=== PATIENT | male | born 2000 | race Caucasian/White ===

== ENCOUNTER 2021-07-01 12:19 | Observation (INO) ==
--- NOTE | 2021-07-01 12:59 | Emergency Department Note ---
Impression & Plan Pneumothorax, traumatic, Multiple fractures of ribs ED Provider Note NAME: RUIZ CHEW AGE: 21 SEX: M : 2000 ARRIVES VIA: Walk-In INFORMANT: Patient, ED PROVIDER(S): Alber Swartz DO CHIEF COMPLAINT: Chest pain HPI: The patient is a 21-year-old male who presented to emergency department for an evaluation of chest pain. The patient has left-sided chest pain over his anterior left chest. He states he fell yesterday while skateboarding he thinks he landed on his arm. He has some abrasions on his left upper extremity but otherwise has no other complaints. He denies having any nausea or vomiting. He denies having any abdominal pain or rectal bleeding. He denies having any back pain. He was seen at an urgent care center and had x-rays which revealed a pneumothorax as well as rib fractures. He was sent to the emergency department for further evaluation. He states he has pain that worsens with deep inspiration as well as palpation over the anterior chest wall. He denies having any leg pain or leg swelling. ROS: See above HPI for pertinent positives & negatives. A total of 10 systems reviewed and were otherwise negative. PAST MEDICAL HISTORY: See Below PAST SURGICAL HISTORY: See Below FAMILY HISTORY: See Below SOCIAL HISTORY: See Below HOME MEDICATIONS: See Below ALLERGIES: See Below VITALS: See Below PHYSICAL EXAMINATION: GENERAL: Patient is awake alert in no acute distress patient is resting comfortably and showing no signs of anxiety EYES: The conjunctivae are clear. The pupils are round and reactive. EARS, NOSE, MOUTH AND THROAT: The nose is without any evidence of any deformity. Mucous membranes are moist. Tongue is midline. NECK: The neck is nontender and supple. RESPIRATORY: Splinting respirations were noted. Diminished breath sounds are noted in the left lung field. CARDIOVASCULAR: Regular rate and rhythm noted there no murmurs rubs or gallops normal S1 normal S2. GASTROINTESTINAL: The abdomen is soft. Abdomen is nontender. BACK: No midline tenderness or or step-off noted range of motion in flexion extension as well as rotation no signs of muscle spasm noted MUSCULOSKELETAL/EXTREMITIES: There is no evidence of gross deformity full range of motion is noted in the hips and shoulders. There is tenderness to palpation over the left anterior chest wall. No crepitus was appreciated. SKIN: There is no obvious evidence of any rash. There are no petechiae, pallor or cyanosis noted. Abrasions were noted on the left palm. There was no active bleeding. NEUROLOGIC: Patient is awake alert and oriented x3. Gait was steady. MEDICAL DECISION MAKING: The patient is a 21-year-old male who presented to the emergency department for evaluation of chest pain. The patient was seen at [facility] and had a chest x-ray. He was felt to have rib fractures and pneumothorax. He was sent to the emergency department for further evaluation. The patient was not hypoxic. He did not appear to have any signs of abdominal tenderness. The trauma occurred yesterday. I discussed patient's laboratory and radiographic studies with him. I discussed his condition with the on-call general surgeon. They reviewed to evaluate the patient in the emergency department for further management and disposition. Triage Nursing notes reviewed. Prior medical records reviewed Vital Signs: reviewed and remarkable for no significant abnormalities Differential diagnosis: Fracture, dislocation, contusion, intra-abdominal, pneumothorax, intrathoracic, intracranial, neurologic, compartment syndrome, rhabdomyolysis, as well as other pathologies. ER treatment provided: See below Diagnostics interpreted by me: ECG: none Cardiac Monitoring: An order was placed for continuous cardiac monitoring. The monitor shows a rate of 51 bpm with sinus rhythm. Laboratory studies: As stated above and show below. Imaging studies: See below Consultation(s): I discussed this case with Dr. Huber who is on-call for general surgery Past Med/Surg History Social History Smoking Status: Never smoker Feels Safe at Home: Yes Allergies Allergies Allergy/AdvReac Type Severity Reaction Status Date / Time No Known Allergies Allergy Unverified 07/01/21 14:45 Home Meds Home Medications Medication Instructions Recorded Confirmed No Known Home Medications 07/01/21 07/01/21 Results & Data (ED) Vital Signs Vital Signs - 24 hr 07/01/21 12:23 07/01/21 14:03 Temperature 37.0 C Temperature Source Oral Pulse Rate 68 51 L Pulse Rate [Apical] 51 L Respiratory Rate 20 18 Respiratory Effort / Characteristics Non-Labored Spontaneous Respiratory Depth Normal Respiratory Pattern Regular Blood Pressure 137/78 Blood Pressure [Right Arm] 130/69 Blood Pressure Mean 97 Blood Pressure Mean [Right Arm] 89 Blood Pressure Position [Right Arm] Sitting Pulse Oximetry 99 100 Oxygen Delivery Method Room Air Room Air Sepsis Recent Fever Within 48 Hours No Sepsis New/Unexplained Change in Mental Status N/A Sepsis Action Taken by Nursing No Action Required Home Medications Current Medication List: was personally reviewed by me Laboratory Data Attestation: I reviewed the patient's lab results. Result diagrams: 07/01/21 14:03 07/01/21 14:03 Lab Results 07/01/21 07/01/21 07/01/21 Range/Units 14:03 14:03 14:03 WBC 6.75 (4.8-10.8) K/uL RBC 4.79 (4.7-6.1) M/uL Hgb 14.2 (14.0-18.0) g/dL Hct 41.5 L (42-52) % MCV 86.6 (80-100) fL MCH 29.6 (25-34) pg MCHC 34.2 (32-36) g/dL RDW Std Deviation 42.4 (36.4-46.3) fL RDW Coeff of Sugar 13.3 (11.5-14.5) % Plt Count 232 (130-400) K/uL MPV 8.9 (7.4-10.4) fL Immature Gran % (Auto) 0.1 % Neut % (Auto) 63.3 % Lymph % (Auto) 26.7 % Brown % (Auto) 8.9 % Eos % (Auto) 0.9 % Baso % (Auto) 0.1 % Neut # (Auto) 4.27 (1.4-6.5) K/uL Lymph # (Auto) 1.80 (1.2-3.4) K/uL Brown # (Auto) 0.60 H (0.11-0.59) K/uL Eos # (Auto) 0.06 (0-0.5) K/uL Baso # (Auto) 0.01 (0-0.2) K/uL Immature Gran # (Auto) 0.01 (0.00-0.02) K/uL PT 11.4 (9.0-12.0) Seconds INR 1.1 (0.9-1.1) APTT 28.8 (21.0-31.0) Seconds PTT Ratio 1.0 Sodium 136 (136-145) mmol/L Potassium 3.8 (3.5-5.1) mmol/L Chloride 102 (98-107) mmol/L Carbon Dioxide 27 (21-32) mmol/L Anion Gap 7 (3-11) BUN 10 (6-23) mg/dl Creatinine 0.78 (0.6-1.4) mg/dl Est Cr Clr Drug Dosing 165.4 ml/min Est GFR ( Amer) 148.5 ml/min Est GFR (Non-Af Amer) 128.1 ml/min BUN/Creatinine Ratio 12.8 (10-20) Glucose 87 (70-99(Fasting)) mg/dl Calcium 9.2 (8.5-10.1) mg/dl Total Bilirubin 1.2 H (0.2-1.0) mg/dl AST 22 (13-39) U/L ALT 18 (7-52) U/L Alkaline Phosphatase 97 (34-104) U/L Total Protein 7.3 (6.0-8.3) gm/dl Albumin 4.3 (3.4-5.0) gm/dl Globulin 3.0 (2.5-4.0) gm/dl Albumin/Globulin Ratio 1.4 (0.9-2) Lipase 3 L (11-82) U/L SARS-CoV-2, RNA, NAAT (NEGATIVE) 07/01/21 Range/Units 14:06 WBC (4.8-10.8) K/uL RBC (4.7-6.1) M/uL Hgb (14.0-18.0) g/dL Hct (42-52) % MCV (80-100) fL MCH (25-34) pg MCHC (32-36) g/dL RDW Std Deviation (36.4-46.3) fL RDW Coeff of Sugar (11.5-14.5) % Plt Count (130-400) K/uL MPV (7.4-10.4) fL Immature Gran % (Auto) % Neut % (Auto) % Lymph % (Auto) % Brown % (Auto) % Eos % (Auto) % Baso % (Auto) % Neut # (Auto) (1.4-6.5) K/uL Lymph # (Auto) (1.2-3.4) K/uL Brown # (Auto) (0.11-0.59) K/uL Eos # (Auto) (0-0.5) K/uL Baso # (Auto) (0-0.2) K/uL Immature Gran # (Auto) (0.00-0.02) K/uL PT (9.0-12.0) Seconds INR (0.9-1.1) APTT (21.0-31.0) Seconds PTT Ratio Sodium (136-145) mmol/L Potassium (3.5-5.1) mmol/L Chloride (98-107) mmol/L Carbon Dioxide (21-32) mmol/L Anion Gap (3-11) BUN (6-23) mg/dl Creatinine (0.6-1.4) mg/dl Est Cr Clr Drug Dosing ml/min Est GFR ( Amer) ml/min Est GFR (Non-Af Amer) ml/min BUN/Creatinine Ratio (10-20) Glucose (70-99(Fasting)) mg/dl Calcium (8.5-10.1) mg/dl Total Bilirubin (0.2-1.0) mg/dl AST (13-39) U/L ALT (7-52) U/L Alkaline Phosphatase (34-104) U/L Total Protein (6.0-8.3) gm/dl Albumin (3.4-5.0) gm/dl Globulin (2.5-4.0) gm/dl Albumin/Globulin Ratio (0.9-2) Lipase (11-82) U/L SARS-CoV-2, RNA, NAAT NEGATIVE (NEGATIVE) Imaging Data Radiologist's Impression: Chest CT 07/01/21 12:51 CT OF THE CHEST WITHOUT IV CONTRAST CLINICAL HISTORY: Left-sided chest pain following trauma. COMPARISON STUDY: No previous studies for comparison. CT DOSE: 349.77 mGy.cm TECHNIQUE: Axial images of the chest were obtained without IV contrast. Images were reviewed in the axial, sagittal, and coronal planes. IV contrast was not administered for this examination. Automated exposure control was utilized for the study. A dose lowering technique was utilized adhering to the principles of ALARA. FINDINGS: A [id number] left pneumothorax occupies 30% of the left hemith orax. Subpleural left lower lobe opacity favors atelectasis. Subpleural ground glass opacity could reflect atelectasis or pulmonary contusion. There are acute nondisplaced fractures of the lateral left fifth and sixth ribs. No acute right- sided rib fractures are present. There is no right pneumothorax. Thoracic aorta is suboptimally assessed on this unenhanced exam but there is no mediastinal hematoma. Size of the heart is normal. There is no pericardial effusion. There is no thoracic lymphadenopathy. Note is made of slight loss of height of the superior endplate of T4. Visualized portions of the upper abdomen are unremarkable on this unenhanced exam. IMPRESSION: 1. Small to moderate left-sided pneumothorax which occupies 30% of the left hemithorax. 2. Acute nondisplaced fractures of the lateral left fifth and sixth ribs. 3. Subpleural left lower lobe opacity which could reflect atelectasis or pulmonary contusion. 4. Age indeterminate mild compression deformity of the superior endplate of T4. ACT 112: Negative or not required by law. Electronically signed by: Joseph Darling M.D. 07/01/2021 1:52 PM Discharge Plan Visit Data Chief Complaint: Rib Injury/Pain Stated Complaint: RIB FX, SENT BY [employer] ED Provider: Alber Swartz Discharge Problem: Pneumothorax, traumatic, Multiple fractures of ribs Patient Disposition: Being Evaluated by Surgeon Forms Stand Alone Forms: [employer] Prescriptions Prescriptions: No Action No Known Home Medications RF: 0 Referrals Referrals: PCP,NO [Primary Care Provider] -
--- NOTE | 2021-07-01 13:55 | CT Scan Report ---
CT OF THE CHEST WITHOUT IV CONTRAST CLINICAL HISTORY: Left-sided chest pain following trauma. COMPARISON STUDY: No previous studies for comparison. CT DOSE: 349.77 mGy.cm TECHNIQUE: Axial images of the chest were obtained without IV contrast. Images were reviewed in the axial, sagittal, and coronal planes. IV contrast was not administered for this examination. Automat ed exposure control was utilized for the study. A dose lowering technique was utilized adhering to t he principles of ALARA. FINDINGS: A [id number] left pneumothorax occupies 30% of the left hemithorax. Subpleural left lower lobe opacity favors atelectasis. Subpleural ground glass opacity could reflect atelectasis or pulmonary contusion. There are acute nondisplaced fractures of the lateral left fifth and sixth ribs. No acute right-sided rib fractures are present. There is no right pneumothorax. Thoracic aorta is arellano boptimally assessed on this unenhanced exam but there is no mediastinal hematoma. Size of the heart i s normal. There is no pericardial effusion. There is no thoracic lymphadenopathy. Note is made of sli ght loss of height of the superior endplate of T4. Visualized portions of the upper abdomen are unrem arkable on this unenhanced exam. IMPRESSION: 1. Small to moderate left-sided pneumothorax which occupies 30% of the left hemithorax. 2. Acute nondisplaced fractures of the lateral left fifth and sixth ribs. 3. Subpleural left lower lobe opacity which could reflect atelectasis or pulmonary contusion. 4. Age indeterminate mild compression deformity of the superior endplate of T4. ACT 112: Negative or not required by law. Electronically signed by: Joseph Darling M.D. 07/01/2021 1:52 PM
[2021-07-01 14:14] LABS: Basophils # (auto) 0.01 K/uL (0-0.2); Basophils % (auto) 0.1 %; Eosinophils # (auto) 0.06 K/uL (0-0.5); Eosinophils % (auto) 0.9 %; Hematocrit (blood only) 41.5 % (42-52); Hemoglobin 14.2 g/dL (14.0-18.0); Immature Granulocytes # (auto) 0.01 K/uL (0.00-0.02); Immature Granulocytes % (auto) 0.1 %; Lymphocytes % (auto) 26.7 %; Mean Corpuscular Hemoglobin 29.6 pg (25-34); Mean Corpuscular Hgb Conc 34.2 g/dL (32-36); Mean Corpuscular Volume 86.6 fL (80-100); Mean Platelet Volume 8.9 fL (7.4-10.4); Monocytes % (auto) 8.9 %; Neutrophils # (auto) 4.27 K/uL (1.4-6.5); Neutrophils % (auto) 63.3 %; Platelet Count 232 K/uL (130-400); RDW Coefficient of Variation 13.3 % (11.5-14.5); RDW Standard Deviation 42.4 fL (36.4-46.3); Red Blood Count 4.79 M/uL (4.7-6.1); White Blood Count 6.75 K/uL (4.8-10.8)
[2021-07-01] MEDS ORDERED: LIDO/EPINEPHRINE/SOD BICARB 20 ML VIAL ONE (14:20)
[2021-07-01 14:25] LABS: INR 1.1 (0.9-1.1); Partial Thromboplastin Time 28.8 Seconds (21.0-31.0); Prothrombin Time 11.4 Seconds (9.0-12.0)
[2021-07-01 14:55] LABS: Albumin Globulin Ratio 1.4 (0.9-2); Albumin Level 4.3 gm/dl (3.4-5.0); BUN Creatinine Ratio 12.8 (10-20); Bilirubin,Total 1.2 mg/dl (0.2-1.0); Calcium 9.2 mg/dl (8.5-10.1); Creatinine Clr Calc Pharmacy 165.4 ml/min; Est GFR (African American) 148.5 ml/min; Est GFR (Non-African American) 128.1 ml/min; Potassium 3.8 mmol/L (3.5-5.1); Total Protein 7.3 gm/dl (6.0-8.3)
[2021-07-01] MEDS ORDERED: MoRPHine SULFATE 2 MG/ML CARP IV STA (16:05)
[2021-07-01] MEDS ORDERED: ONDANSETRON INJ 2 MG/ML 2 ML VIAL IV STA (16:05)
--- NOTE | 2021-07-01 16:49 | Operative Report ---
Post Operative Report Pre & Post Diagnosis Left-sided pneumothorax I identified the patient and participated in the time-out.: Yes Procedure Left-sided chest tube placement Surgeon Gaudencio Huber MD Knapsack Sprayer None Estimated Blood Loss 2 Findings Consistent with Post-Op Diagnosis Carr of air on entry into the pleural space Specimens None Anesthesia Type Local Complications No immediate complications Description of Procedure Patient was placed in the usual position on the ER stretcher. A timeout was performed, consent was obtained. The area of the left chest was prepped and draped in the normal sterile fashion. Local anesthetic was injected into and around the fifth intercostal space. Incision was made with an 11 blade scalpel and was carried down just over the sixth rib. The pleural space was entered and a carr of air was encountered. A finger sweep yielded no adhesions. A 20 Belgian pleural catheter was threaded into the pleural cavity and secured with a #1 silk suture. A occlusive dressing was applied. He tolerated the procedure without complication. Chest x-ray is pending. I attest to the content of the Intraoperative Record and any orders documented therein. Any exceptions are noted below.
--- NOTE | 2021-07-01 16:50 | History & Physical Report ---
Date of Service July 01, 2021 Assessment & Plan (1) Pneumothorax, traumatic: Plan: 21-year-old gentleman with left-sided pneumothorax. A left chest tube was placed in the emergency department, the details of which are dictated in a separate operative note. Chest x-ray is pending in the ER. There is minimal air leak. We will plan to have placed the chest tube to 20 cm wall suction. We will keep him on suction for at least 24 hours. We will monitor for airleak. History of Present Illness Primary Care Provider: NO PCP 21-year-old gentleman was skateboarding yesterday, hit a pothole, was thrown off and hit his left side. He had pain in his left chest and difficulty breathing overnight and came to the emergency department. He denies fevers and chills. He denies any other complaints. CT scan demonstrates a 30% pneumothorax on the left side as well as fifth and sixth lateral rib fractures. Allergies Allergy/AdvReac Type Severity Reaction Status Date / Time No Known Allergies Allergy Unverified 07/01/21 14:45 Home Medications Medication Instructions Recorded Confirmed Type No Known Home Medications 07/01/21 07/01/21 History Past Med/Surg History Social History Smoking Status: Never smoker Feels Safe at Home: Yes Review of Systems Review of Systems: All systems reviewed & are unremarkable except as noted in HPI & below Physical Exam Constitutional: WD/WN, vitals as above Neck: trachea midline, no thyromegaly Respiratory: normal respiratory effort; no respiratory distress and no labored breathing Cardiovascular: Rate/Rhythm: regular rate and regular rhythm Gastrointestinal (Abdomen): Inspection/Auscultation: abdomen normal to inspection; abdomen not distended Percussion/Palpation: abdomen soft; abdomen nontender Skin: no rashes, warm and dry Psychiatric: A+Ox3, euthymic affect Results & Data Results & Data ([facility]) Vital Signs (Past 12 Hours) Vital Signs Temp Pulse Pulse Resp BP BP Pulse Ox 07/01/21 16:00 84 20 147/69 H 97 07/01/21 14:03 51 L 51 L 18 130/69 100 07/01/21 12:23 37.0 C 68 20 137/78 99 Laboratory Results 07/01/21 07/01/21 07/01/21 Range/Units 14:06 14:03 14:03 WBC (4.8-10.8) K/uL RBC (4.7-6.1) M/uL Hgb (14.0-18.0) g/dL Hct (42-52) % MCV (80-100) fL MCH (25-34) pg MCHC (32-36) g/dL RDW Std Deviation (36.4-46.3) fL RDW Coeff of Sugar (11.5-14.5) % Plt Count (130-400) K/uL MPV (7.4-10.4) fL Immature Gran % (Auto) % Neut % (Auto) % Lymph % (Auto) % [place] % (Auto) % Eos % (Auto) % Baso % (Auto) % Neut # (Auto) (1.4-6.5) K/uL Lymph # (Auto) (1.2-3.4) K/uL [place] # (Auto) (0.11-0.59) K/uL Eos # (Auto) (0-0.5) K/uL Baso # (Auto) (0-0.2) K/uL Immature Gran # (Auto) (0.00-0.02) K/uL PT 11.4 (9.0-12.0) Seconds INR 1.1 (0.9-1.1) APTT 28.8 (21.0-31.0) Seconds PTT Ratio 1.0 Sodium 136 (136-145) mmol/L Potassium 3.8 (3.5-5.1) mmol/L Chloride 102 (98-107) mmol/L Carbon Dioxide 27 (21-32) mmol/L Anion Gap 7 (3-11) BUN 10 (6-23) mg/dl Creatinine 0.78 (0.6-1.4) mg/dl Est Cr Clr Drug Dosing 165.4 ml/min Est GFR ( Amer) 148.5 ml/min Est GFR (Non-Af Amer) 128.1 ml/min BUN/Creatinine Ratio 12.8 (10-20) Glucose 87 (70-99(Fasting)) mg/dl Calcium 9.2 (8.5-10.1) mg/dl Total Bilirubin 1.2 H (0.2-1.0) mg/dl AST 22 (13-39) U/L ALT 18 (7-52) U/L Alkaline Phosphatase 97 (34-104) U/L Total Protein 7.3 (6.0-8.3) gm/dl Albumin 4.3 (3.4-5.0) gm/dl Globulin 3.0 (2.5-4.0) gm/dl Albumin/Globulin Ratio 1.4 (0.9-2) Lipase 3 L (11-82) U/L SARS-CoV-2, RNA, NAAT NEGATIVE (NEGATIVE) 07/01/21 Range/Units 14:03 WBC 6.75 (4.8-10.8) K/uL RBC 4.79 (4.7-6.1) M/uL Hgb 14.2 (14.0-18.0) g/dL Hct 41.5 L (42-52) % MCV 86.6 (80-100) fL MCH 29.6 (25-34) pg MCHC 34.2 (32-36) g/dL RDW Std Deviation 42.4 (36.4-46.3) fL RDW Coeff of Sugar 13.3 (11.5-14.5) % Plt Count 232 (130-400) K/uL MPV 8.9 (7.4-10.4) fL Immature Gran % (Auto) 0.1 % Neut % (Auto) 63.3 % Lymph % (Auto) 26.7 % [place] % (Auto) 8.9 % Eos % (Auto) 0.9 % Baso % (Auto) 0.1 % Neut # (Auto) 4.27 (1.4-6.5) K/uL Lymph # (Auto) 1.80 (1.2-3.4) K/uL [place] # (Auto) 0.60 H (0.11-0.59) K/uL Eos # (Auto) 0.06 (0-0.5) K/uL Baso # (Auto) 0.01 (0-0.2) K/uL Immature Gran # (Auto) 0.01 (0.00-0.02) K/uL PT (9.0-12.0) Seconds INR (0.9-1.1) APTT (21.0-31.0) Seconds PTT Ratio Sodium (136-145) mmol/L Potassium (3.5-5.1) mmol/L Chloride (98-107) mmol/L Carbon Dioxide (21-32) mmol/L Anion Gap (3-11) BUN (6-23) mg/dl Creatinine (0.6-1.4) mg/dl Est Cr Clr Drug Dosing ml/min Est GFR ( Amer) ml/min Est GFR (Non-Af Amer) ml/min BUN/Creatinine Ratio (10-20) Glucose (70-99(Fasting)) mg/dl Calcium (8.5-10.1) mg/dl Total Bilirubin (0.2-1.0) mg/dl AST (13-39) U/L ALT (7-52) U/L Alkaline Phosphatase (34-104) U/L Total Protein (6.0-8.3) gm/dl Albumin (3.4-5.0) gm/dl Globulin (2.5-4.0) gm/dl Albumin/Globulin Ratio (0.9-2) Lipase (11-82) U/L SARS-CoV-2, RNA, NAAT (NEGATIVE) Diagnostic Findings CT OF THE CHEST WITHOUT IV CONTRAST CLINICAL HISTORY: Left-sided chest pain following trauma. COMPARISON STUDY: No previous studies for comparison. CT DOSE: 349.77 mGy.cm TECHNIQUE: Axial images of the chest were obtained without IV contrast. Images were reviewed in the axial, sagittal, and coronal planes. IV contrast was not administered for this examination. Automated exposure control was utilized for the study. A dose lowering technique was utilized adhering to the principles of ALARA. FINDINGS: A [id number] left pneumothorax occupies 30% of the left hemithorax. Subpleural left lower lobe opacity favors atelectasis. Subpleural ground glass opacity could reflect atelectasis or pulmonary contusion. There are acute nondisplaced fractures of the lateral left fifth and sixth ribs. No acute right-sided rib fractures are present. There is no right pneumothorax. Thoracic aorta is suboptimally assessed on this unenhanced exam but there is no mediastinal hematoma. Size of the heart is normal. There is no pericardial effusion. There is no thoracic lymphadenopathy. Note is made of slight loss of height of the superior endplate of T4. Visualized portions of the upper abdomen are unremarkable on this unenhanced exam. IMPRESSION: 1. Small to moderate left-sided pneumothorax which occupies 30% of the left hemithorax. 2. Acute nondisplaced fractures of the lateral left fifth and sixth ribs. 3. Subpleural left lower lobe opacity which could reflect atelectasis or pulmonary contusion. 4. Age indeterminate mild compression deformity of the superior endplate of T4. Code Status & VTE Plan VTE Prophylaxis Plan VTE Prophylaxis will be ordered: Yes (1) Pneumothorax, traumatic Encounter type: initial encounter Qualified Code(s): S27.0XXA - Traumatic pneumothorax, initial encounter
--- NOTE | 2021-07-01 17:11 | XRay Report ---
XR chest 1V portable HISTORY: Left-sided chest tube placement COMPARISON: None. FINDINGS: Interval placement left-sided chest tube is terminates in the medial aspect of the left mid lung zone. There is trace subcutaneous emphysema at the left chest wall. The left pneumothorax has es sentially resolved in the interval. Small patchy density at the left lung base persists. Left lateral rib fractures are again noted. The right lung is clear. No mediastinal shift. The heart is normal in size. IMPRESSION: Interval placement of a left-sided chest tube. The left pneumothorax has essentially resolved in the interval. Left-sided rib fractures are again noted. ACT 112: Negative or not required by law. Electronically signed by: Avinash Dong M.D. 07/01/2021 5:10 PM
[2021-07-01] MEDS ORDERED: ONDANSETRON INJ 2 MG/ML 2 ML VIAL IV PRN (17:57)
[2021-07-01] MEDS: MoRPHine SULFATE 2 MG/ML CARP IV PRN ×2 (19:26→22:52)
[2021-07-01] MEDS: ENOXAPARIN INJ 40 MG/0.4 ML SYR SQ SCH (19:27)
[2021-07-01] MEDS: KETOROLAC 30 MG/ML VIAL IV PRN (20:23)
[2021-07-02] MEDS: KETOROLAC 30 MG/ML VIAL IV PRN ×2 (07:38→16:38)
[2021-07-02] MEDS: MoRPHine SULFATE 2 MG/ML CARP IV PRN ×2 (11:55→20:17)
--- NOTE | 2021-07-02 13:31 | Surgery Progress Note ---
Date of Service July 02, 2021 Assessment & Plan (1) Pneumothorax, traumatic: Plan: Left-sided pneumothorax, status post chest tube placement. Continue chest tube to wall suction for today. We will plan to take off suction tomorrow morning. We will check chest x-ray today. Admission and Anticipated Discharge Date Admission Date: July 01, 2021 Subjective Doing well today. Denies significant pain. Denies shortness of breath. Denies fevers or chills Physical Exam Constitutional: WD/WN, vitals as above Neck: trachea midline, no thyromegaly Respiratory: normal respiratory effort; no respiratory distress and no labored breathing Chest tube in place left chest wall, no airleak Skin: no rashes, warm and dry Psychiatric: A+Ox3, euthymic affect Results & Data ([facility]) Vital Signs (Past 12 Hours) Vital Signs Temp Pulse Resp BP Pulse Ox 07/02/21 07:31 36.5 C 72 18 103/68 94 07/02/21 03:05 36.5 C 55 L 18 125/60 98 (1) Pneumothorax, traumatic Encounter type: initial encounter Qualified Code(s): S27.0XXA - Traumatic pneumothorax, initial encounter
[2021-07-02] MEDS: oxyCODONE/ACETAMINOPHEN 5mg/325mg TAB PO PRN ×2 (14:06→22:33)
--- NOTE | 2021-07-02 15:03 | XRay Report ---
XR chest 1V portable HISTORY: Left-sided pneumothorax with chest tube. Follow-up. COMPARISON: Chest 07/01/2021. FINDINGS: A left chest tube is unchanged in position. No definite left pneumothorax. Trace subcutaneo us emphysema at the left lateral chest wall persists. Left-sided rib fractures are again noted. Left basilar hazy density has improved. No new focal lung consolidations identified. The heart is normal i n size. No mediastinal shift. IMPRESSION: Left-sided chest tube is unchanged in position. No definite left pneumothorax. ACT 112: Negative or not required by law. Electronically signed by: Avinash Dong M.D. 07/02/2021 3:02 PM
[2021-07-02] MEDS: ENOXAPARIN INJ 40 MG/0.4 ML SYR SQ SCH (18:18)
[2021-07-03] MEDS: MoRPHine SULFATE 2 MG/ML CARP IV PRN ×3 (02:09→13:47)
[2021-07-03] MEDS: oxyCODONE/ACETAMINOPHEN 5mg/325mg TAB PO PRN ×2 (09:38→17:25)
--- NOTE | 2021-07-03 11:10 | Surgery Progress Note ---
Date of Service July 03, 2021 Assessment & Plan (1) Pneumothorax, traumatic: Plan: Left-sided pneumothorax, status post chest tube placement. Chest tube placed to [facility] Will check chest x-ray at 1:00 If normal chest x-ray, will remove tube. Possible discharge home later this afternoon. Admission and Anticipated Discharge Date Admission Date: July 01, 2021 Subjective Doing well today. Denies significant pain. Denies shortness of breath. Denies fevers or chills Physical Exam Constitutional: WD/WN, vitals as above Neck: trachea midline, no thyromegaly Respiratory: normal respiratory effort; no respiratory distress and no labored breathing Cardiovascular: Rate/Rhythm: regular rate and regular rhythm Gastrointestinal (Abdomen): Inspection/Auscultation: abdomen normal to inspection; abdomen not distended Percussion/Palpation: abdomen soft; abdomen nontender Skin: no rashes, warm and dry Psychiatric: A+Ox3, euthymic affect Results & Data ([facility]) Vital Signs (Past 12 Hours) Vital Signs Temp Pulse Resp BP BP Pulse Ox 07/03/21 07:41 36.5 C 63 16 103/56 L 96 07/03/21 02:04 36.5 C 56 L 16 122/77 100 07/02/21 23:10 36.5 C 59 L 16 116/54 L 99 (1) Pneumothorax, traumatic Encounter type: initial encounter Qualified Code(s): S27.0XXA - Traumatic pneumothorax, initial encounter
--- NOTE | 2021-07-03 13:36 | XRay Report ---
XR chest 1V portable CLINICAL HISTORY: s/p left chest tube removal COMPARISON STUDY: Chest radiograph July 02, 2021. FINDINGS: Left chest tube remains in place. No pneumothorax is identified. Lungs are clear. Cardiac s ize is normal. Mediastinal contours are normal. Left-sided rib fractures on CT of July 01, 2021 are not well-visualized by radiography. IMPRESSION: Left chest tube in place. No pneumothorax identified. ACT 112: Negative or not required by law. Electronically signed by: Joseph Darling M.D. 07/03/2021 1:35 PM
--- NOTE | 2021-07-03 14:24 | XRay Report ---
SINGLE VIEW CHEST CLINICAL HISTORY: Chest tube removal. FINDINGS: 2 AP, portable, upright chest radiographs are compared to study dated 07/03/2021. The cardio mediastinal silhouette is unremarkable. The lungs and pleural spaces are clear. A left-sided chest tu be has been removed. Question trace residual left apical pneumothorax. The bony thorax is grossly int act. IMPRESSION: 1. A left-sided chest tube has been removed. Question trace residual left apical pneumothorax. 2. No airspace consolidation or large pleural effusion is identified. ACT 112: Negative or not required by law. Electronically signed by: Uche Chou M.D. 07/03/2021 2:23 PM
[2021-07-03] MEDS: ENOXAPARIN INJ 40 MG/0.4 ML SYR SQ SCH (18:49)
--- NOTE | 2021-07-03 20:04 | XRay Report ---
SINGLE VIEW CHEST CLINICAL HISTORY: Chest tube removal. Assess for residual pneumothorax. FINDINGS: 2 AP, portable, upright chest radiographs are compared to study performed earlier the same day 07/03/2021. The cardiomediastinal silhouette is unremarkable. The lungs and pleural spaces are ace ar. Question trace residual left apical pneumothorax. No right-sided pneumothorax is identified. The bony thorax is grossly intact. IMPRESSION: 1. A left-sided chest tube has been removed. Question trace residual left apical pneumothorax. This i s similar in appearance to today's earlier examination. 2. No airspace consolidation or large pleural effusion is identified. ACT 112: Negative or not required by law. Electronically signed by: Uche Chou M.D. 07/03/2021 8:03 PM
--- NOTE | 2021-07-04 14:00 | Discharge Summary ---
Date of Service July 04, 2021 Admission HPI Per Admitting Provider 21-year-old gentleman was skateboarding yesterday, hit a pothole, was thrown off and hit his left side. He had pain in his left chest and difficulty breathing overnight and came to the emergency department. He denies fevers and chills. He denies any other complaints. CT scan demonstrates a 30% pneumothorax on the left side as well as fifth and sixth lateral rib fractures. Principal Diagnosis Traumatic left pneumothorax Fifth and sixth lateral rib fractures nondisplaced Discharge Data Allergies Allergy/AdvReac Type Severity Reaction Status Date / Time No Known Allergies Allergy Unverified 07/01/21 14:45 Consultations 07/01/21 15:10 Consult General Surgery Stat Ordered Studies 07/01/21 12:51 CT chest diagnostic wo con Stat Hospital Course (1) Pneumothorax, traumatic: Patient was evaluated in the emergency room by Dr. Huber and a 20 [place] chest tube was placed in the emergency room. Patient was admitted to the hospital for pain management and chest tube was placed to wall suction for about 36 hours. Chest tube was then placed to waterseal on hospital day #2. Chest x- ray was obtained while chest tube was on waterseal and there was no pneumothorax identified. The chest tube was removed with ease and no complications. Post removal of chest tube x-ray question possible apical pneumothorax. Patient was stable vital signs stable no shortness of breath or chest pain. Another chest x-ray was obtained at 7 PM which was stable patient was discharged home in stable condition. Patient was instructed no heavy lifting or strenuous activity for 4 weeks. Patient was instructed to repeat outpatient chest x-ray on Saturday07-10-2021 and follow-up in the surgical office on Saturday. He was given p.o. Percocet as needed for pain. Total Time Total Time Spent Total Time Spent (In Minutes): 90 minutes Total Time Includes: Examination of the Patient, Discharge Planning, Medication Reconciliation and Other (Ambulatory orders) Discharge Plan Discharge Items Patient Disposition: Home - Self-Care Reason For Visit: LEFT-SIDED PNEUMOTHORAX AND RIB FRACTURES Discharge Diagnosis: Left sided pneumothorax and rib fracture Activity: Per Instructions section Non-emergency contact: Primary Care Provider and Surgeon Call non-emergency contact if: you have any medication questions, your pain is not controlled, your pain is concerning for you, you have a fever, your t emperature is above 101, your wound has increased redness, your wound has increased drainage and your wound pain has increased Follow-up/Referrals: Gaudencio Huber MD [Physician] - 07/11/21 9:00 am PCP,CIELO [Primary Care Provider] - Diet: Regular Ambulatory Orders: XR chest 2V PA/lateral (Routine) Timeframe: [id number] Location: Outside Location Ordered By: Alyce Howe Attending Provider Instructions: Post-Surgical ~Discharge Instructions Activity Recommendations: - lifting limitation: (10 pounds for 4 weeks), - exercise/sex/sports limit: (nonstrenuous for 4 weeks), - driving or machine use limit: (none for 1 week or until pain free and no longer taking narcotic pain medication - Shower/bathe limit: (may shower beginning tomorrow) Diet: - Resume previous diet SPECIAL CARE INSTRUCTIONS: - May shower tomorrow morning. Let water hit your back but keep the dressing dry. Sponge bath around the dressing. - Keep the dressing on for at least 72 hours. After 72 hours , if your remove outer dressing just place a small dressing over the area and change daily. - Call the surgeon's office with any questions or concerns - - (ex. temperature higher than 101 degrees F, excessive bleeding or pain). MEDICATIONS: - Resume previous medications unless instructed otherwise by your surgeon. - May alternate extra strength Tylenol and Ibuprofen as needed for mild to moderate pain -650 mg Tylenol every 6 hours as needed - Ibuprofen 600 mg every 6 hours as needed (take with food) - Percocet 1 every 4 hours, as needed for moderate to severe pain - Recommend daily stool softener (Colace) while taking narcotic pain medication to prevent constipation. Drink plenty of water daily. FOLLOW UP VISIT: - If not already scheduled, please call the office to schedule a follow-up appointment with Alyce Romo PA-C on Saturday07/11/2021. Office number You will need to have repeat chest x-ray in 1 week prior to your follow-up visit. This will be ordered for you. Please obtain the chest xray on Saturday07/10/2021 so we have the results prior to your follow-up visit on Saturday07/11/2021. If you are experiencing any shortness of breath, difficulty breathing, chest pa in, you need to report to emergency department for further evaluation. No flying on airplane or scuba diving for 1 month. Pending Studies at Discharge: No Stand-Alone Forms: My [facility], Work/School Release, Smoking Cessation Medications and DC Order Prescriptions: New oxycodone-acetaminophen [Percocet] 5-325 mg tablet 1 tab PO Q4H PRN (Reason: pain) Qty: 18 RF: 0 No Action No Known Home Medications RF: 0 Discharge Orders: Discharge Order (Routine); Ordered 07/03/21 Ordered By: Alyce Romo Admission Data Admit Date/Time: 07/01/21 17:52 Attending Provider: Gaudencio Huber Admit Provider: Gaudencio Huber Primary Care Provider: PCP,NO Other Providers: Gaudencio Huber Other Interventions: Discharge Summary Assessment (RN) Last Done: 07/03/21 20:17
== END 2021-07-03 20:45 | disposition home or self-care (01) ==
LOC: 3W 12:19 → ED 12:19 → 3W 17:49